=== PATIENT | female | born 1985 | race African-American/Black ===

== ENCOUNTER 2017-09-19 03:53 | Emergency (ER) | payer MEDICAID ==
[~2017-09-19] VITALS: Ht 160 cm; Wt 52.2 kg
[2017-09-19 04:05] VITALS: BP_SYST 114
[2017-09-19 04:27] LABS: BILIRUBIN,URINE NEGATIVE (NEGATIVE); BLOOD, URINE NEGATIVE (NEGATIVE); CLARITY/URINE CLEAR (CLEAR); COLOR,URINE YELLOW (YELLOW); GLUCOSE,URINE NEGATIVE (NEGATIVE); KETONES,URINE NEGATIVE (NEGATIVE); LEUKOCYTE ESTERASE ,URINE NEGATIVE (NEGATIVE); NITRITE, URINE NEGATIVE (NEGATIVE); PROTEIN URINE NEGATIVE (NEGATIVE); UROBILINOGEN,URINE 0.2 (0.2-1.0)
[2017-09-19 05:15] VITALS: BP_SYST 118
== END 2017-09-19 05:15 | disposition home or self-care (01) ==
LOC: SED 03:53
DX: L02.412 Cutaneous abscess of left axilla (principal); L73.2 Hidradenitis suppurativa; F17.200 Nicotine dependence, unspecified, uncomplicated; F15.10 Other stimulant abuse, uncomplicated; Z88.2 Allergy status to sulfonamides
CPT/HCPCS: 81003; 81025; 99283

== ENCOUNTER 2017-09-21 00:13 | Emergency (ER) | payer MEDICAID ==
[~2017-09-21] VITALS: Ht 160 cm; Wt 52.2 kg
[2017-09-21 00:35] VITALS: BP_SYST 116
--- NOTE | 2017-09-21 00:35 | NUR ---
Patient to ER bed 8 to gown for evaluation. Side rails up. Report given to DAISHA Hudson.
--- NOTE | 2017-09-21 00:40 | NUR ---
Patient AAO x4, sitting in bed, here for wound re-check to left axilla. Patient had an I & D on an abscess and was told by ER MD to come back today for a follow up. Patient c/o nausea and "upset" stomach from antibiotics. No acute distress noted. Will continue to monitor.
--- NOTE | 2017-09-21 00:45 | NUR ---
SELINA Spicer at bedside examining patient.
[2017-09-21] MEDS ORDERED: ONDANSETRON 4 MG ODT TAB PO ONE (01:00)
--- NOTE | 2017-09-21 01:00 | NUR ---
ER at bedside performing wound assessment.
[2017-09-21 01:36] VITALS: BP_SYST 118
--- NOTE | 2017-09-21 01:36 | NUR ---
Patient given written and verbal discharge instructions and verbalizes understanding. ER MD discussed with patient the results and treatment provided. Patient in stable condition. ID arm band removed. Rx of zofran given. Patient educated on pain management and to follow up with PMD. Pain Scale 0/10. Opportunity for questions provided and answered.
== END 2017-09-21 01:36 | disposition home or self-care (01) ==
LOC: SED 00:13
DX: Z48.01 Encounter for change or removal of surgical wound dressing (principal); Z88.2 Allergy status to sulfonamides
CPT/HCPCS: 99283; Q0162

== ENCOUNTER 2018-04-16 18:38 | Emergency (ER) | payer MEDICAID, OTHER ==
[~2018-04-16] VITALS: Ht 160 cm; Wt 52.2 kg
[2018-04-16 18:46] VITALS: BP_SYST 104
[2018-04-16] MEDS ORDERED: PENICILLIN G BENZATHINE 1.2 MMU/2 ML SYR IM ONE (19:00)
[2018-04-16] MEDS ORDERED: DEXAMETHASONE SOD PHOSPHATE 10 MG/ML VIAL IM ONE (19:00)
[2018-04-16 19:30] VITALS: BP_SYST 120
== END 2018-04-16 19:30 | disposition home or self-care (01) ==
LOC: SED 18:38
DX: J02.0 Streptococcal pharyngitis (principal); R03.0 Elevated blood-pressure reading, without diagnosis of hypertension; Z88.2 Allergy status to sulfonamides
CPT/HCPCS: 96372; 99284; J0561; J1100